=== PATIENT | female | born 1995 | race Caucasian/White ===

== ENCOUNTER 2022-06-20 17:47 | Observation (INO) | payer OTHER ==
[~2022-06-20] VITALS: Ht 154.9 cm; Wt 59.4 kg
[2022-06-20 19:18] LABS: CLARITY URINE CLEAR (CLEAR); COLOR URINE YELLOW (YELLOW); KETONES URINE NEGATIVE (NEGATIVE); LEUKOCYTE ESTERASE URINE NEGATIVE (NEGATIVE); NITRITE URINE NEGATIVE (NEGATIVE); OCCULT BLOOD URINE NEGATIVE (NEGATIVE); PROTEIN URINE TRACE (NEGATIVE); SPECIFIC GRAVITY URINE 1.014 (1.005-1.030); UROBILINOGEN URINE 0.2 E.U./dL (0.2-1.0)
== END 2022-06-20 23:59 | disposition home or self-care (01) ==
LOC: 8 EST LDRP 17:47
PROVIDERS: ADMIT Obstetrics & Gynecology; ATTEND Obstetrics & Gynecology
DX: O26.893 Other specified pregnancy related conditions, third trimester (principal); N89.8 Other specified noninflammatory disorders of vagina; O99.891 Other specified diseases and conditions complicating pregnancy; M54.9 Dorsalgia, unspecified; R35.0 Frequency of micturition; Z3A.35 35 weeks gestation of pregnancy
CPT/HCPCS: 59025; 76805; 76818; 81002; 81003; G0378; 99281

== ENCOUNTER 2022-07-15 14:41 | Inpatient (IN) | payer OTHER ==
[~2022-07-15] VITALS: Ht 154.9 cm; Wt 64.0 kg
[2022-07-15] MEDS ORDERED: METHYLERGONOVINE MALEATE 0.2 MG/ML IM PRN (16:45)
[2022-07-15] MEDS ORDERED: OXYTOCIN 30 UNITS/500ML NS PMX 500 ML IV SCH (16:45)
[2022-07-15] MEDS ORDERED: BUTORPHANOL TARTRATE 2 MG/ML VIAL IV PRN (16:45)
[2022-07-15] MEDS ORDERED: CARBOPROST TROMETHAMINE 250 MCG/ML AMPUL IM PRN (16:45)
[2022-07-15] MEDS ORDERED: LIDOCAINE HCL 1% 20ML VIAL (Pyxis) INJ INFIL SCH (16:45)
[2022-07-15] MEDS ORDERED: NALOXONE HCL 0.4 MG/ML 1ML VIAL IM PRN (16:45)
[2022-07-15 17:42] VITALS: BP 140/79
[2022-07-15] MEDS: LACTATED RINGERS 1,000 ML IV SCH ×2 (18:18→23:29)
[2022-07-15 18:23] LABS: CLARITY URINE CLEAR (CLEAR); COLOR URINE YELLOW (YELLOW); KETONES URINE TRACE (NEGATIVE); LEUKOCYTE ESTERASE URINE 1+ (NEGATIVE); NITRITE URINE NEGATIVE (NEGATIVE); OCCULT BLOOD URINE NEGATIVE (NEGATIVE); PROTEIN URINE 1+ (NEGATIVE); SPECIFIC GRAVITY URINE 1.015 (1.005-1.030); UROBILINOGEN URINE 0.2 E.U./dL (0.2-1.0)
[2022-07-15 18:41] LABS: BASOPHILS % 0.2 % (0.0-2.0); HEMATOCRIT. 29.1 % (36.0-48.0); HEMOGLOBIN. 9.8 g/dL (12.0-16.0); MEAN CORPUSCULAR HEMOGLOBIN 30.7 pg (28.0-32.0); MEAN CORPUSCULAR VOLUME 91.6 fL (81.0-99.0); MEAN PLATELET VOLUME 11.8 fl (7.4-10.4); NEUTROPHILS % 72.8 % (40.0-76.0); PLATELET 131 x1000/uL (130-400); RED BLOOD CELL COUNT 3.17 mill/uL (4.2-5.4); RED CELL DISTRIBUTION WIDTH 14.2 % (11.6-14.6)
[2022-07-15 18:44] LABS: *AMPHETAMINES SCREEN URINE NEGATIVE (NEGATIVE); *BARBITURATES SCREEN URINE NEGATIVE (NEGATIVE); *BENZODIAZEPINES SCREEN URINE NEGATIVE (NEGATIVE); *COCAINE SCREEN URINE NEGATIVE (NEGATIVE); CANNABINOID URINE SCREEN NEGATIVE (NEGATIVE); METHADONE URINE SCREEN NEGATIVE (NEGATIVE); OPIATES URINE SCREEN NEGATIVE (NEGATIVE); PHENCYCLIDINE URINE SCREEN NEGATIVE (NEGATIVE)
[2022-07-15 19:15] LABS: HEPATITIS B SURFACE ANTIGEN NEGATIVE
[2022-07-15 20:31] LABS: INR 0.9; PARTIAL THROMBOPLASTIN TIME 26.4 sec (23.4-31.0)
[2022-07-15] MEDS: AMPICILLIN 2GM in NS 100ML 100 ML IV SCH (21:05)
[2022-07-15] MEDS ORDERED: ROPIVACAINE HCL/PF EPIDURAL 200 ML EPI ONE (23:48)
[2022-07-16] MEDS ORDERED: LIDOCAINE HCL/PF 1% 10 MG/ML 5ML VIAL ONE (02:47)
[2022-07-16] MEDS ORDERED: FENTANYL CITRATE/PF 50MCG/ML 2ML VIAL ONE ×2 (02:47→06:00)
[2022-07-16] MEDS: AMPICILLIN 2GM in NS 100ML 100 ML IV SCH ×3 (03:24→12:26)
[2022-07-16] MEDS ORDERED: ROPIVACAINE HCL/PF EPIDURAL 200 ML EPI SCH (03:45)
[2022-07-16] MEDS ORDERED: ONDANSETRON HCL 4MG/2ML INJ IV PRN (04:15)
[2022-07-16] MEDS: LACTATED RINGERS 1,000 ML IV SCH (04:20)
[2022-07-16] MEDS ORDERED: RHO(D) IMMUNE GLOBULIN 300 MCG/SYR IM PRN (13:30)
[2022-07-16] MEDS ORDERED: LANOLIN OINT 7GM TUBE TOP PRN (13:30)
[2022-07-16] MEDS ORDERED: HEMORRHOIDAL SUPP PR PRN (13:30)
[2022-07-16] MEDS ORDERED: IBUPROFEN 400MG TABLET PO PRN (13:30)
[2022-07-16] MEDS ORDERED: BISACODYL 10MG SUPP PR PRN (13:30)
[2022-07-16] MEDS ORDERED: DIPHENHYDRAMINE 25MG CAPSULE PO PRN (13:30)
[2022-07-16] MEDS ORDERED: OXYTOCIN 30 UNITS/500ML NS PMX 500 ML IV SCH (13:30)
[2022-07-16 15:30] VITALS: BP 130/70
[2022-07-16] MEDS: IBUPROFEN 800MG TABLET PO PRN (15:34)
[2022-07-16 16:30] VITALS: BP 125/79
[2022-07-16] MEDS: GLYCERIN/WITCH HAZEL LEAF MEDICATED PAD TOP PRN (17:47)
[2022-07-16] MEDS: BENZOCAINE/LANOLIN/ALOE VERA SPRAY TOP PRN (17:48)
[2022-07-16] MEDS: ACETAMINOPHEN 500MG TABLET PO PRN (17:49)
[2022-07-16 20:00] VITALS: BP 130/72
[2022-07-16] MEDS: SIMETHICONE 80MG TABLET CHEW PO SCH (20:54)
[2022-07-16] MEDS: MAGNESIUM/ALUMINUM HYDROXIDE/SIMETHICONE 30ML UDC PO SCH (20:55)
[2022-07-16] MEDS: DOCUSATE SODIUM 100MG CAPSULE PO SCH (20:55)
[2022-07-17] MEDS: ACETAMINOPHEN 500MG TABLET PO PRN ×3 (02:00→16:54)
[2022-07-17 03:20] VITALS: BP 112/60
[2022-07-17 07:49] LABS: BASOPHILS % 0.3 % (0.0-2.0); EOSINOPHILS % 1.1 % (0.0-5.0); HEMATOCRIT. 22.4 % (36.0-48.0); HEMOGLOBIN. 7.2 g/dL (12.0-16.0); LYMPHOCYTES % 11.8 % (20.0-50.0); MEAN CORPUSCULAR HEMOGLOBIN 29.5 pg (28.0-32.0); MEAN CORPUSCULAR VOLUME 91.2 fL (81.0-99.0); MEAN PLATELET VOLUME 11.6 fl (7.4-10.4); MONOCYTES % 5.2 % (2.0-8.0); NEUTROPHILS % 81.6 % (40.0-76.0); PLATELET 107 x1000/uL (130-400); RED BLOOD CELL COUNT 2.45 mill/uL (4.2-5.4); RED CELL DISTRIBUTION WIDTH 14.4 % (11.6-14.6)
[2022-07-17 07:50] VITALS: BP 95/62
[2022-07-17] MEDS: FERROUS SULFATE 325MG TABLET PO SCH ×3 (08:05→20:20)
[2022-07-17] MEDS: SIMETHICONE 80MG TABLET CHEW PO SCH ×3 (08:05→20:20)
[2022-07-17] MEDS: MAGNESIUM/ALUMINUM HYDROXIDE/SIMETHICONE 30ML UDC PO SCH ×2 (08:05→20:20)
[2022-07-17] MEDS ORDERED: PRENATAL VIT/FE FUMARATE/FA TABLET PO SCH (09:00)
[2022-07-17] MEDS: GLYCERIN/WITCH HAZEL LEAF MEDICATED PAD TOP PRN (12:17)
[2022-07-17 16:00] VITALS: BP 108/78
[2022-07-17] MEDS: IBUPROFEN 800MG TABLET PO PRN (16:08)
[2022-07-17] MEDS: BENZOCAINE/LANOLIN/ALOE VERA SPRAY TOP PRN (16:08)
[2022-07-17 19:00] VITALS: BP 117/64
[2022-07-17] MEDS: DOCUSATE SODIUM 100MG CAPSULE PO SCH (20:20)
[2022-07-18] MEDS: ACETAMINOPHEN 500MG TABLET PO PRN (00:27)
[2022-07-18 03:30] VITALS: BP 115/59
[2022-07-18 08:00] VITALS: BP 115/62
== END 2022-07-18 11:38 | disposition home or self-care (01) | DRG 542 ==
LOC: OBSVTOIN 14:41 → 8 EST LDRP 14:41 → 8EST 07-16 15:24
PROVIDERS: ADMIT Obstetrics & Gynecology; ATTEND Obstetrics & Gynecology
PROC: 0DQR0ZZ Repair Anal Sphincter, Open Approach (ICD-10-PCS; principal; 2022-07-16)
PROC: 10D07Z6 Extraction of Products of Conception, Vacuum, Via Natural or Artificial Opening (ICD-10-PCS; 2022-07-16)
PROC: 3E0R3BZ Introduction of Anesthetic Agent into Spinal Canal, Percutaneous Approach (ICD-10-PCS; 2022-07-16)
PROC: 00HU33Z Insertion of Infusion Device into Spinal Canal, Percutaneous Approach (ICD-10-PCS; 2022-07-16)
DX: O76 Abnormality in fetal heart rate and rhythm complicating labor and delivery (principal); Z37.0 Single live birth; D69.6 Thrombocytopenia, unspecified; D62 Acute posthemorrhagic anemia; O70.20 Third degree perineal laceration during delivery, unspecified; O99.12 Other diseases of the blood and blood-forming organs and certain disorders involving the immune mechanism complicating childbirth; O77.0 Labor and delivery complicated by meconium in amniotic fluid; Z3A.39 39 weeks gestation of pregnancy; Z20.822 Contact with and (suspected) exposure to COVID-19; O69.81X0 Labor and delivery complicated by cord around neck, without compression, not applicable or unspecified
CPT/HCPCS: 36415; 76805; 76818; 80305; 81003; 85025; 86592; 86593; 86703; 86762; 86780; 86850; 86900; 87340; 87426; 99281; J0290; J2405; J2795; J3010; J3490; J7120; J2590